=== PATIENT | female | born 1980 | race Two or more races ===

== ENCOUNTER 2019-11-06 10:49 | Emergency (ER) | payer MEDICAID ==
[~2019-11-06] VITALS: Ht 160 cm; Wt 84.1 kg
[2019-11-06] MEDS ORDERED: LIDOCAINE 1% 10 ML VIAL INJ ONE (11:30)
[2019-11-06] MEDS ORDERED: ACETAMINOPHEN 325 MG TABLET PO ONE (11:30)
[2019-11-06] MEDS ORDERED: PERTUSS(ACELL),DIPH,TET VAC/PF 0.5 ML VIAL IM ONE (11:30)
[2019-11-06] MEDS ORDERED: BACITRACIN 0.9 GM PACKET OINTMENT TP ONE (12:30)
[2019-11-06 12:52] VITALS: BP 135/84
== END 2019-11-06 12:54 | disposition home or self-care (01) ==
LOC: EMS 10:53
DX: S61.217A Laceration without foreign body of left little finger without damage to nail, initial encounter (principal); Y93.G1 Activity, food preparation and clean up; W26.8XXA Contact with other sharp object(s), not elsewhere classified, initial encounter; Y92.89 Other specified places as the place of occurrence of the external cause; Y99.8 Other external cause status
CPT/HCPCS: 12002; 90471; 90715; 99283; J3490

== ENCOUNTER 2019-11-17 11:40 | Emergency (ER) | payer MEDICAID ==
[~2019-11-17] VITALS: Ht 160 cm; Wt 85.5 kg
[2019-11-17 11:43] VITALS: BP 143/85
== END 2019-11-17 12:22 | disposition home or self-care (01) ==
LOC: EMS 11:45
DX: S61.411D Laceration without foreign body of right hand, subsequent encounter (principal); X58.XXXD Exposure to other specified factors, subsequent encounter
CPT/HCPCS: Z7502